=== PATIENT | male | born 1980 | race African-American/Black ===

== ENCOUNTER 2019-02-25 08:20 | Emergency (ER) | payer SELFPAY ==
[2019-02-25 08:55] VITALS: BP 132/72
[2019-02-25] MEDS ORDERED: NEOMY SULF/POLYMYX B SULF/HC OTIC SUSP 10 ML AD ONE (09:35)
--- NOTE | 2019-02-25 09:36 | ER Document Report ---
HPI - HPI Patient complains to provider of: right ear clogged Time Seen by Provider: 02/25/19 09:10 Onset: Last week Onset/Duration: Sudden, Persistent Pain Level: Denies Context: 38-year-old male presents emergency department with complaints of clogged ear. Reports is been going on for a week. Reports last night he noticed some swelling. Denies fever vomiting diarrhea. Associated Symptoms: None Exacerbated by: Denies, Coughing Relieved by: Denies Similar symptoms previously: No Recently seen / treated by doctor: No - CONSTITUTIONAL Constitutional: DENIES: Fever, Chills - EENT EENT: DENIES: Sore Throat, Ear Pain, Eye problems - NEURO Neurology: DENIES: Headache, Weakness, Vision blurred, Dizzinesss / Vertigo - CARDIOVASCULAR Cardiovascular: DENIES: Chest pain - RESPIRATORY Respiratory: DENIES: Trouble Breathing, Coughing - GASTROINTESTINAL Gastrointestinal: DENIES: Abdominal Pain, Black / Bloody Stools - URINARY Urinary: DENIES: Dysuria, Urgency, Frequency - REPRODUCTIVE Reproductive: DENIES: : - MUSCULOSKELETAL Musculoskeletal: DENIES: Extremity pain Past Medical History - General Information source: Patient - Social History Smoking Status: Never Smoker Chew tobacco use (# tins/day): No Frequency of alcohol use: None Drug Abuse: None Family History: None Patient has suicidal ideation: No Patient has homicidal ideation: No - Medical History Medical History: Negative Surgical Hx: Negative Vertical Provider Document - CONSTITUTIONAL Agree With Documented VS: Yes Exam Limitations: No Limitations General Appearance: WD/WN, No Apparent Distress - INFECTION CONTROL TRAVEL OUTSIDE OF THE [place] IN LAST 30 DAYS: No - HEENT HEENT: Atraumatic, Normocephalic. negative: Conjuctival Injection Notes: Swelling noticed to right EAC. Some pustule noted culture sent. - NECK Neck: Normal Inspection, Supple - RESPIRATORY Respiratory: Breath Sounds Normal, No Respiratory Distress - CARDIOVASCULAR Cardiovascular: Regular Rate - MUSCULOSKELETAL/EXTREMETIES Musculoskeletal/Extremeties: MAEW, FROM, Non-Tender - NEURO Level of Consciousness: Awake, Alert, Appropriate Motor/Sensory: No Motor Deficit - DERM Integumentary: Warm, Dry Course - Re-evaluation Re-evalutation: 02/25/19 15:11 Swelling noted to right EAC with some drainage. Wound culture obtained. Patient was treated with ear wick Cortisporin otic drops. He was instructed on application. He was instructed to return here for worsening symptoms or concerns. He was also instructed to return earlier if he experience redness swelling around the ear. He verbalized understanding to all instructions. - Vital Signs Vital signs: Temp Pulse Resp BP Pulse Ox 98.2 F 62 18 132/72 H 100 02/25/19 08:54 02/25/19 08:54 02/25/19 08:54 02/25/19 08:54 02/25/19 08:54 Discharge - Discharge Clinical Impression: Ear pain, right Otitis externa Qualifiers: Otitis externa type: unspecified type Chronicity: acute Laterality: right Qualified Code(s): H60.501 - Unspecified acute noninfective otitis externa, right ear Condition: Stable Disposition: HOME, SELF-CARE Instructions: Using Ear Drops with a Wick ([facility]), Otitis Externa ([facility]) Additional Instructions: *You have been evaluated for ear pain, otitis externa *Use ear drops as prescribed- 4 drops every 6 hours *Follow up with a primary care provider within one week *Return to ED for worsening condition, changes, needs, worsening symptoms Referrals: GALDINO LINDQUIST NP [NURSE PRACTITIONER] - Follow up in 3-5 days
== END 2019-02-25 09:49 | disposition home or self-care (01) ==
LOC: ER 08:20
DX: H60.501 Unspecified acute noninfective otitis externa, right ear (principal); H92.01 Otalgia, right ear
CPT/HCPCS: 99282; 87070; 87205; 87077; 87186; J3490